=== PATIENT | male | born 1990 | race African-American/Black ===

== ENCOUNTER 2017-11-25 17:33 | Emergency (ER) | payer OTHER ==
[~2017-11-25] VITALS: Ht 175.3 cm; Wt 72.6 kg
[2017-11-25 18:49] LABS: URINE BILIRUBIN NEGATIVE (Negative); URINE BLOOD NEGATIVE (Negative); URINE CLARITY CLEAR; URINE COLOR YELLOW; URINE GLUCOSE-RANDOM* NEGATIVE (Negative); URINE KETONES NEGATIVE (Negative); URINE LEUKOCYTES NEGATIVE (Negative); URINE NITRITE NEGATIVE (Negative); URINE PROTEIN (DIPSTICK) NEGATIVE (Negative); URINE SPECIFIC GRAVITY >= 1.030 (1.005-1.035)
[2017-11-25 19:06] LABS: ABSOLUTE NEUTROPHILS 9.2 thou/uL (1.4-8.2); BASOPHILS 0.6 % (0.0-2.0); EOSINOPHILS 0.1 % (0.0-3.0); HEMATOCRIT 44.2 % (42.0-52.0); HEMOGLOBIN 15.3 gm/dL (14.0-18.0); MCH 32.3 pg (26.0-34.0); MCHC 34.6 g/dL (28.0-37.0); MCV 93.5 fL (80.0-100.0); MONOCYTES 3.5 % (1.0-8.0); PLATELET COUNT 286 thou/uL (150-400); POLYS 84.8 % (36.0-66.0); RBC 4.72 mil/uL (4.50-6.00); RDW 11.8 % (10.5-14.5); WBC 10.9 thou/uL (4.0-11.0)
[2017-11-25 19:15] LABS: CALCIUM 9.4 mg/dL (8.5-10.1); CREATININE 0.9 mg/dL (0.7-1.3); POTASSIUM 3.2 mmol/L (3.5-5.1)
[2017-11-25 19:19] LABS: ALBUMIN 4.4 g/dL (3.4-5.0); DIRECT BILIRUBIN 0.1 mg/dL (<0.1-0.3); TOTAL BILIRUBIN 0.4 mg/dL (<0.1-1.0); TOTAL PROTEIN 7.8 g/dL (6.4-8.2)
[2017-11-25] MEDS ORDERED: BENTYL 20 MG TA20 M1 PO (19:56)
[2017-11-25] MEDS ORDERED: ZOFRAN ODT4 MG PO (19:56)
== END 2017-11-25 20:26 | disposition home or self-care (01) ==
LOC: ER 17:33
PROVIDERS: Emergency Medicine; Physician Assistant
DX: K52.9 Noninfective gastroenteritis and colitis, unspecified (principal)